=== PATIENT | female | born 1955 | race Caucasian/White ===

== ENCOUNTER 2023-07-15 15:45 | Emergency (ER) | payer MEDICARE, OTHER, SELFPAY ==
--- NOTE | ~2023-07-15 | XR_ITS ---
EXAMINATION: XR knee LT 3V DATE: 07/15/2023 19:03 INDICATION: Left knee pain. Injury. TECHNIQUE: 3 views of left knee were obtained. COMPARISON: None. FINDINGS: Bone alignment is normal. No fracture. There is mild osteoarthritis of patellofemoral joes rtment. There is a small knee joint effusion. IMPRESSION: 1. Mild left knee osteoarthritis. 2. Small left knee joint effusion. Reviewed, dictated and finalized at location [facility]
[2023-07-15 15:46] VITALS: BP 151/94; PULSE 84; RESP 16; O2SAT 100
--- NOTE | 2023-07-15 18:43 | ED.LOWEXIN ---
HPI - Extremity Injury (Lower) General Chief Complaint: Extremity Injury, Lower <Kimber Stark PA-C - Last Filed: 07/16/23 18:51> Stated Complaint: Left knee pain <Kimber Stark PA-C - Last Filed: 07/16/23 18:51> Time Seen by Provider: 07/15/23 18:43 <Kimber Satrk PA-C - Last Filed: 07/16/23 18:51> Focused HPI: This is a 67 year old female that presents to the ER for left knee pain. Ongoing since an injury today. Reports walking down the steps and felt a pop in the knee. Unable to bear weight since. Reports decreased ROM. Denies numbness. GENERAL: Well-appearing, well-nourished, and in no acute distress. HEAD: Normocephalic, atraumatic. CHEST: Clear to auscultation. ?No respiratory distress. HEART: Regular rate and rhythm.? NEURO: ?Alert and oriented x3. Patient screened in triage and initial orders placed.? ?Additional care and disposition to be based upon?diagnostic testing and treatment. <Kimber Stark PA-C - Last Filed: 07/16/23 18:51> History of Present Illness HPI Narrative: 67-year-old female presents with left knee pain. She was walking down steps when she felt a pop in her left knee. She has already been undergoing physical therapy for knee stiffness for the past 3 weeks and she states prior to this incident it was already hurting/throbbing today. She is having some intermittent paresthesias in her left foot. No prior surgical intervention in this extremity. <Marielena Palmer MD - Last Filed: 07/17/23 17:28> Related Data Allergies/Adverse Reactions: Allergies Allergy/AdvReac Type Severity Reaction Status Date / Time codeine Allergy Unknown Verified 07/15/23 20:53 iodine Allergy Unknown Verified 07/15/23 20:53 latex Allergy Anaphylaxis Verified 07/15/23 20:53 Penicillins Allergy Rash Verified 07/15/23 20:53 <Kimber Stark PA-C - Last Filed: 07/16/23 18:51> Review of Systems Review of Systems: CONSTITUTIONAL: Denies fever MUSCULOSKELETAL: Reports joint pain, and myalgia. NEUROLOGIC: Denies numbness <Kimber Stark PA-C - Last Filed: 07/16/23 18:51> All systems reviewed & are unremarkable except as noted in HPI and below <Kimber Stark PA-C - Last Filed: 07/16/23 18:51> PMFSH Past Medical History Medical History: Medical History (Updated 07/16/23 @ 18:48 by Kimber Stark PA-C) History of hyperlipidemia <Kimber Stark PA-C - Last Filed: 07/16/23 18:51> Social History Social History: Social History (Updated 07/16/23 @ 18:48 by Kimber Stark PA-C) Substance use: never <Kimber Stark PA-C - Last Filed: 07/16/23 18:51> Exam Narrative: GENERAL: Well-appearing, well-nourished, and in no acute distress. HEAD: Normocephalic, atraumatic. EYES: EOMI. CHEST: Clear to auscultation. No respiratory distress. No wheezes rales or rhonchi HEART: Regular rate and rhythm. No murmur heard. Normal peripheral pulses. EXTREMITIES: Normal range of motion. No edema or obvious deformity. Normal DP pulse. Normal sensation SKIN: Warm, dry, no rash. NEURO: No focal deficits. Alert and oriented x3. PSYCH: Normal mood and affect <Kimber Stark PA-C - Last Filed: 07/16/23 18:51> GENERAL: Well-appearing, well-nourished, and in no acute distress. HEAD: Normocephalic, atraumatic. EYES: No scleral injection or icterus. CHEST: Speaking in complete sentences. No respiratory distress. Nonlabored HEART: Regular rate and rhythm. Normal peripheral pulses. EXTREMITIES: Patient does have a slight left knee effusion on examination but without overlying redness/erythema/hyperemia. She is tender to palpation along the lateral joint line of left knee as well as posteriorly. Nevertheless, she is able to demonstrate 5/5 strength with dorsiflexion/plantar flexion of the ankle, left knee extension and flexion, and left hip abduction. Normal tone. No ecchymosis. SKIN: Warm, dry, no rash. NEURO: No focal deficits. Alert and oriented. Normal sensation
[2023-07-15] MEDS: ACETAMINOPHEN 325 MG TABLET 650 MG PO (20:54)
[2023-07-15] MEDS: HYDROcodone/acetaminophen (*CRX) 5-325 MG TABLET 1 TAB PO (20:58)
--- NOTE | 2023-07-15 21:00 | PC.NURSE ---
Patient stated that when she was younger she was told she had a codeine allergy. Pharmacy and EDP Dr. Palmer both notified. Per EDP Dr. Palmer it will be up to the patient if she wants to take the medication. Per patient she took [place] for her kidney stone and wants to take the medication.
[2023-07-15 21:21] VITALS: BP 152/90; PULSE 78; RESP 15; TEMP 36.7; O2SAT 99
== END 2023-07-15 21:22 | disposition home or self-care (01) ==
PROVIDERS: Emergency Provider Student in an Organized Health Care Education/Training Program
DX: M25.562 Pain in left knee (principal); E78.5 Hyperlipidemia, unspecified; M17.12 Unilateral primary osteoarthritis, left knee
CPT/HCPCS: 73562; 99283; A9270